=== PATIENT | female | born 1990 | race Caucasian/White ===

== ENCOUNTER 2016-08-15 06:47 | Day surgery (SDC) | payer OTHER ==
[2016-08-10 10:56] VITALS: BMI 24.9
[2016-08-15] MEDS ORDERED: ceFAZolin SODIUM 1 GM VIAL ONE (07:29)
[2016-08-15] MEDS ORDERED: DEXAMETHASONE SOD PHOSPHATE 4 MG/1 ML VIAL ONE (07:29)
[2016-08-15] MEDS ORDERED: ePHEDrine SULFATE 50 MG/1 ML AMPULE ONE (07:29)
[2016-08-15] MEDS ORDERED: SODIUM CHLORIDE 0.9% P/F 10 ML VIAL IJ ONE (07:29)
[2016-08-15] MEDS ORDERED: KETOROLAC TROMETHAMINE 30 MG/1 ML VIAL ONE (07:29)
[2016-08-15] MEDS ORDERED: PROPOFOL 20 ML ONE ×6 (07:30→09:05)
[2016-08-15] MEDS ORDERED: MIDAZOLAM HCL 2 MG/2 ML SINGLE DOSE VIAL ONE (07:30)
[2016-08-15] MEDS ORDERED: SUCCINYLCHOLINE CHLORIDE 200 MG/10 ML VIAL ONE (07:30)
[2016-08-15] MEDS ORDERED: LIDOCAINE HCL 1%, 10 MG/ML (20ML VIAL) ONE (08:06)
[2016-08-15] MEDS ORDERED: LIDOCAINE 1%/EPI 1:100000 (50 ML MULTI DOSE VIAL) ONE ×3 (08:06→08:45)
[2016-08-15] MEDS ORDERED: BUPIVACAINE HCL/PF 0.5% (5MG/ML) 10 ML VIAL ONE (08:07)
--- NOTE | 2016-08-15 08:13 | HP ---
History & Physical Update - History History: No Change - Physical Physical: No Change - Assessment Assessment: No Change - Plan Plan: No Change
[2016-08-15] MEDS ORDERED: ceFAZolin SODIUM 1 GM VIAL IVPB ONE (08:19)
[2016-08-15] MEDS ORDERED: LIDOCAINE 1%/EPI 1:100000 (50 ML MULTI DOSE VIAL) PNB ONE ×2 (08:33)
--- NOTE | 2016-08-15 10:35 | OP ---
Operative Note - Note: Operative Date: 08/15/16 Operation: Excision, bilateral axillary masses Findings: 8 x 6 x 6 cm bilateral soft tissue fibrofatty masses (2) Post-Operative Diagnosis: Same as Pre-op Surgeon: Gee Flores Anesthesiologist/ACID SUPERVISOR: Macario Grimaldo Jr. Anesthesia: Local, MAC Estimated Blood Loss (mls): 20 Operative Report Dictated: Yes
[2016-08-15] MEDS ORDERED: ONDANSETRON 4 MG/2 ML VIAL IVPUSH PRN (10:55)
[2016-08-15] MEDS ORDERED: oxyCODONE HCL 5 MG TABLET PO PRN (10:55)
[2016-08-15] MEDS ORDERED: LACTATED RINGERS SOLUTION 1,000 ML IV SCH (11:00)
[2016-08-15 11:44] VITALS: TEMP 98.2
--- NOTE | 2016-08-15 13:15 | OP ---
DATE OF OPERATION: 08/15/2016 PROCEDURE: Excisional biopsy of bilateral axillary masses (2). PREOPERATIVE DIAGNOSIS: Bilateral axillary masses/soft tissue masses. POSTOPERATIVE DIAGNOSIS: Bilateral axillary masses/soft tissue masses. SURGEON: Gee Flores MD ANESTHESIA: Local with sedation. FINDINGS AND PROCEDURE: This is a 26-year-old female who presented with several years' history of enlargement of bilateral axillary soft tissue masses following . On physical exam, patient has two 8 x 6 x 6 cm size soft tissue masses which are soft with ill-defined borders and nontender. So, patient was advised excisional biopsy of the masses, and consent was obtained after discussing the risks, benefits, and alternatives to the procedure. Patient was brought to the operating room and placed in supine position. Both arms abducted 90 degrees with a roll under the shoulder. The intravenous sedation was given by the anesthesia team. The operative sites were prepped and draped in the usual sterile fashion using lidocaine 1% with epinephrine. Local anesthesia was administered at the proposed incision sites. The left-sided mass was addressed first by making an 8 x 4 cm elliptical incision over the mass using scalpel blade number 15 for the dissection, using Bovie cautery, was done until the fibrofatty mass, which was about 8 x 6 cm in size, was excised down to the level just above the clavipectoral fascia. The wound was closed with interrupted Vicryl 3-0 suture for the subcutaneous tissue and dermis and continuous Biosyn 4 suture for the subcuticular layer. The wound closure was reinforced with Steri-Strips and covered with pressure dressing. The right-sided mass was also excised in the same manner. This time, some bleeders were suture ligated with Vicryl 3-0. The wounds were also closed with interrupted Vicryl 3-0 suture for the subcutaneous tissue layer and dermis and continuous Biosyn 4-0 suture for the subcuticular layer. The wound closure was also reinforced with Steri-Strips and then covered with pressure dressing. The patient was transferred to the post-anesthesia care unit in satisfactory condition. Estimated blood loss was about 20 mL. Wound class clean. The patient received a gram of Ancef prior to the start of the procedure. Clara [id number]
[2016-08-15 14:30] VITALS: BP 118/67; PULSE 80
--- NOTE | 2016-08-16 13:25 | PATH ---
Surgical Pathology Report Patient Name: AVANI CHANEL Med. Rec. #: [id number] /Age/Gender: 1990 (Age: 26) / F Account: [id number] Location: [facility] SURGICAL Taken: 08/15/2016 Received: 08/15/2016 Reported: 08/16/2016 Physicians: Gee Flores M.D. Specimen(s) Received A: LEFT AXILLARY MASS B: RIGHT AXILLARY MASS Clinical History Bilateral axillary masses Final Diagnosis A. AXILLARY MASS, LEFT, EXCISION: BENIGN FATTY MAMMARY TISSUE. BENIGN SKIN. B. AXILLARY MASS, RIGHT, EXCISION: BENIGN FATTY MAMMARY TISSUE. BENIGN SKIN. Comment: These findings likely represent accessory axillary breast tissue. Clinical correlations are suggested. Electronically Signed Ethan Leary M.D. Gross Description A. Received in formalin, labeled "left axillary mass" is an 8.4 x 5.5 x 3.5 cm irregular, unoriented portion of fibroadipose tissue which is surfaced by a 7.7 x 3.9 cm alba-brown, elliptical, unremarkable portion of skin. Sectioning reveals yellow, lobulated fatty tissue. Separately received within the same container is a 4.0 x 3.7 x 1.0 cm portion of yellow, lobulated soft tissue. Sectioning reveals unremarkable adipose tissue. No masses or areas of hemorrhage or necrosis are identified. [employer] sections are submitted in 7 cassettes as follows: [id number] from larger portion of tissue; 0-7-[id number] from separately received smaller portion of tissue. B. Received in formalin, labeled "right axillary mass" is a 10.2 x 7.3 x 3.5 cm irregular, unoriented portion of fibrofatty tissue which is surfaced by an 8.8 x 4.3 cm alba-brown, elliptical, unremarkable portion of skin. Sectioning reveals yellow, lobulated fatty tissue. No masses or areas of hemorrhage or necrosis are identified. [employer] sections are submitted in 5 cassettes. /08/15/201608/15/2016
== END 2016-08-15 12:50 | disposition home or self-care (01) ==
LOC: JASU-SURG 06:47
PROVIDERS: ATTEND Surgery
PROC: 0HBV0ZX Excision of Bilateral Breast, Open Approach, Diagnostic (ICD-10-PCS; principal; 2016-08-15 08:00)
DX: D24.2 Benign neoplasm of left breast (principal); D24.1 Benign neoplasm of right breast
CPT/HCPCS: 84703; 88305-TC; 94760

== ENCOUNTER 2016-08-17 21:45 | Emergency (ER) | payer OTHER ==
[2016-08-17 22:14] VITALS: BP 124/70; PULSE 94; TEMP 98.9; BMI 22.3
--- NOTE | 2016-08-17 22:30 | PDOC ---
History of Present Illness - General History Source: Patient <Vel Castillo - Last Filed: 08/18/16 00:11> - General History Source: Patient Exam Limitations: No Limitations - History of Present Illness Initial Comments: 08/17/16 22:48 The patient is a 26-year-old female, with no significant past medical history, who presents to the emergency department with a headache for the past 2 days, s/ p unknown surgery. The patient rates her headache as a 9/10. She states she took a tylenol at 20:30 with no relief, and reports no alleviating factors. The patient denies any recent head trauma or LOC. The patient denies any fever, chills, cough, and dizziness. The patient denies abdominal pain, nausea, vomiting, diarrhea, and constipation. The patient denies dysuria, frequency, urgency, and hematuria. The patient denies chest pain, diaphoresis, palpitations , and shortness of breath. Her LMP was 07/31/16. Allergies: NKDA Social History: Non-smoker. Denies alcohol or drug use. <Filipe Wooten - Last Filed: 08/18/16 00:22> - General Chief Complaint: Headache Stated Complaint: HEADACHE Time Seen by Provider: 08/17/16 22:30 Past History - Past Medical History Anemia: No Asthma: No COPD: No GI Disorders: No HTN: No Hypercholesterolemia: No Liver Disease: No Seizures: No Thyroid Disease: No - Psycho/Social/Smoking Cessation Hx Suicidal Ideation: No Smoking History: Never smoked Have you smoked in the past 12 months: No Hx Alcohol Use: Yes (OCC-BEER) Drug/Substance Use Hx: No Substance Use Type: Alcohol <Vel Castillo - Last Filed: 08/18/16 00:11> <Filipe Wooten - Last Filed: 08/18/16 00:22> - Past Medical History Allergies/Adverse Reactions: Allergies Allergy/AdvReac Type Severity Reaction Status Date / Time No Known Drug Allergies Allergy Verified 08/17/16 22:09 Home Medications: Ambulatory Orders Acetaminophen [Tylenol] 650 mg PO QID PRN 08/17/16 Acetaminophen/Caffeine/Butalb [Fioricet -] 1 tab PO Q6H #28 tablet MDD 2 Review of Systems - Review of Systems Able to Perform ROS?: Yes Comments:: 08/17/16 22:43 CONSTITUTIONAL: Absent: fever, no chills, no fatigue EYES: Absent: visual changes ENT: Absent: ear pain, no sore throat CARDIOVASCULAR: Absent: chest pain, no palpitations RESPIRATORY: Absent: cough, no SOB GI: Absent: abdominal pain, no nausea, no vomiting, no constipation, no diarrhea GENITOURINARY: Absent: dysuria, no frequency, no hematuria MUSKULOSKELETAL: Absent: back pain, no arthralgia, no myalgia SKIN: Absent: rash NEURO: Present: +headache Absent: focal weakness or paresthesias, dizziness, unsteady gait, seizure, mental status changes, bladder or bowel incontinence <Filipe Wooten - Last Filed: 08/18/16 00:22> *Physical Exam - Vital Signs Last Vital Signs Temp Pulse Resp BP Pulse Ox 98.9 F 94 H 18 124/70 98 08/17/16 22:13 08/17/16 22:13 08/17/16 22:13 08/17/16 22:13 08/17/16 22:13 <Vel Castillo - Last Filed: 08/18/16 00:11> - Vital Signs Last Vital Signs Temp Pulse Resp BP Pulse Ox 98.9 F 94 H 18 124/70 98 08/17/16 22:13 08/17/16 22:13 08/17/16 22:13 08/17/16 22:13 08/17/16 22:13 - Physical Exam Comments: 08/17/16 22:42 GENERAL: +Mild distress. Well-appearing, well-nourished. HEENT: Normocephalic, atraumatic. PERRL, EOM intact. CARDIOVASCULAR: Normal S1, S2. Regular rate and rhythm. PULMONARY: Clear to auscultation bilaterally. ABDOMEN: Soft, non-distended, non-tender. EXTREMITIES: Normal ROM in all four extremities. No gross deformities. SKIN: Warm, dry. No rash NEUROLOGICAL: No focal neurological deficits. <Filipe Wooten - Last Filed: 08/18/16 00:22> ED Treatment Course - RADIOLOGY Radiograph Interpretation: 08/18/16 00:21 EXAM: Head CT INTERPRETED BY: Dr. Hicks REVIEWED BY: Dr. Castillo IMPRESSION: No evidence of a focal intracranial lesion or hemorrhage is seen. <Filipe Wooten - Last Filed: 08/18/16 00:22> Medical Decision Making - Medical Decision Making 08/18/16 00:12 Dr. Castillo: The scribe's documentation has been prepared under my direction and personally reviewed by me in its entirery. I confirm that the note above accurately reflects all work, treatment, procedures, and medical decision making performed by me. <Vel Castillo - Last Filed: 08/18/16 00:11> *DC/Admit/Observation/Transfer - Discharge Dispostion Admit: No <Vel Castillo - Last Filed: 08/18/16 00:11> - Attestations Scribe Attestion: 08/17/16 22:43 Documentation prepared by Filipe Wooten, acting as medical staff coordinator for Vel Castillo DO. <Filipe Wooten - Last Filed: 08/18/16 00:22> Diagnosis at time of Disposition: Headache Qualifiers: Headache type: unspecified Headache chronicity pattern: unspecified pattern Intractability: not intractable Qualified Code(s): R51 - Headache - Discharge Dispostion Disposition: HOME Condition at time of disposition: Stable - Prescriptions Prescriptions: Acetaminophen/Caffeine/Butalb [Fioricet -] 1 tab PO Q6H #28 tablet MDD 2 - Referrals Referrals: Imelda Steve NP [Primary Care Provider] - - Patient Instructions Printed Discharge Instructions: DI for Headache
[2016-08-17 23:23] LABS: URINE APPEARANCE SLCLOUDY; URINE BILIRUBIN NEGATIVE (NEGATIVE); URINE BLOOD NEGATIVE (NEGATIVE); URINE COLOR STRAW; URINE GLUCOSE (UA) NEGATIVE (NEGATIVE); URINE KETONE NEGATIVE (NEGATIVE); URINE NITRITE NEGATIVE (NEGATIVE); URINE PROTEIN NEGATIVE (NEGATIVE); URINE UROBILINOGEN NEGATIVE E.U./dl (0.2-1.0)
[2016-08-17 23:24] LABS: URINE LEUK ESTERASE TRACE (NEGATIVE)
[2016-08-17 23:27] LABS: URINE MUCUS RARE; URINE WBC 4 /hpf (3-5)
[2016-08-17] MEDS ORDERED: IBUPROFEN 600 MG TABLET (FP) PO STA (23:34)
[2016-08-17] MEDS ORDERED: METOCLOPRAMIDE HCL 10 MG TABLET (FP) PO ONE ×2 (23:34→23:37)
[2016-08-17] MEDS ORDERED: IBUPROFEN 600 MG TABLET (FP) PO ONE (23:37)
[2016-08-18] MEDS ORDERED: ACETAMINOPHEN/CAFFEINE/BUTALBITAL 1 TAB ONE (00:12)
[2016-08-18] MEDS ORDERED: ACETAMINOPHEN/CAFFEINE/BUTALBITAL 1 TAB PO ONE (00:15)
== END 2016-08-18 00:16 | disposition home or self-care (01) ==
LOC: JER 21:45
DX: R51 Headache (principal)
CPT/HCPCS: 70450-TC; 81003; 81015; 84703; 99281-25